=== PATIENT | female | born 1975 | race Hispanic/Latino ===

== ENCOUNTER 2023-12-18 20:09 | Emergency (ER) | payer OTHER ==
[2023-12-18] MEDS ORDERED: Ibuprofen 800 MG TAB ONE (20:53)
== END 2023-12-18 21:38 | disposition home or self-care (01) ==
LOC: MADERS 20:09
DX: S20.213A Contusion of bilateral front wall of thorax, initial encounter (principal); R07.81 Pleurodynia; X50.1XXA Overexertion from prolonged static or awkward postures, initial encounter
CPT/HCPCS: 71111; 71120